=== PATIENT | female | born 1935 | race Caucasian/White ===

== ENCOUNTER 2022-02-11 09:21 | Inpatient (IN) | payer OTHER ==
[~2022-02-11] VITALS: Ht 147.3 cm; Wt 45.8 kg
[2022-02-11] MEDS ORDERED: VANCOMYCIN 1 GM in IV D5W 250 ML IV ONE (09:30)
[2022-02-11] MEDS ORDERED: PIPERACILLIN /TAZOBACTAM 3.375 G in IV D5W 50 ML IV ONE (09:30)
[2022-02-11] MEDS ORDERED: IV NS 0.9% 1,000 ML BAG IV ONE (09:30)
[2022-02-11] MEDS ORDERED: ACETAMINOPHEN 650 MG/SUPP.RECT RC ONE ×2 (10:04→11:00)
[2022-02-11 10:20] LABS: BASOPHILS % (AUTO) 0.1 % (0.0-2.0); HEMATOCRIT 43 % (33-45); HEMOGLOBIN 12.8 g/dL (11.5-14.8); LYMPHOCYTES # (AUTO) 0.9 K/uL (0.8-4.8); LYMPHOCYTES % (AUTO) 3.4 % (20.0-44.0); MEAN CORPUSCULAR HGB CONC 30 g/dl (31.0-36.0); MEAN CORPUSCULAR VOLUME 96 fL (82-100); MONOCYTES # (AUTO) 0.2 K/uL (0.1-1.30); MONOCYTES % (AUTO) 0.7 % (2.0-12.0); NEUTROPHILS # (AUTO) 24.3 K/uL (1.8-8.9); NEUTROPHILS % (AUTO) 95.8 % (43.0-81.0); PLATELET COUNT (AUTO) 312 K/uL (150-450); RED BLOOD CELL COUNT(AUTO) 4.45 MIL/uL (4.0-5.2); WHITE BLOOD COUNT (AUTO) 25.4 K/uL (4.3-11.0)
[2022-02-11] MEDS ORDERED: MORPHINE SULFATE INJ 2 MG/ML DISP.SYRIN IV ONE (10:30)
[2022-02-11 10:40] LABS: ALANINE AMINOTRANSFERASE 19 U/L (12-78); ALBUMIN 1.6 g/dL (3.4-5.0); ALKALINE PHOSPHATASE 289 U/L (46-116); ASPARTATE AMINOTRANSFERASE 22 U/L (15-37); BILIRUBIN,DIRECT 0.3 mg/dL (0.0-0.2); BILIRUBIN,TOTAL 0.7 mg/dL (0.2-1.0); CALCIUM, SERUM 7.4 mg/dL (8.5-10.1); CARBON DIOXIDE 11 mmol/L (21-32); CHLORIDE 103 mmol/L (98-107); GLUCOSE 274 mg/dL (74-106); POTASSIUM 4.8 mmol/L (3.5-5.1); SODIUM SERUM 139 mmol/L (136-145); TOTAL PROTEIN, SERUM 6.5 g/dL (6.4-8.2); UREA NITROGEN, BLOOD 79 mg/dL (7-18)
[2022-02-11] MEDS ORDERED: MORPHINE SULFATE INJ 2 MG/ML DISP.SYRIN ONE (10:52)
[2022-02-11 11:18] LABS: BILIRUBIN,URINE NEGATIVE (NEGATIVE); COLOR,URINE YELLOW (YELLOW); LEUKOCYTE ESTERASE ,URINE MODERATE (NEGATIVE); NITRITE, URINE POSITIVE (NEGATIVE); PH,URINE >8.5 (5.0-8.0); PROTEIN,URINE 100 mg/dl (NEGATIVE); UGLUCOSE 100 MG/DL mg/dL (NEGATIVE); UROBILINOGEN,URINE 0.2 EU/dL (0.2)
[2022-02-11] MEDS ORDERED: ACETAMINOPHEN 325 MG TABLET PO PRN (11:30)
[2022-02-11] MEDS ORDERED: ONDANSETRON HCL/PF 4 MG/2 ML VIAL IVP PRN (11:30)
[2022-02-11] MEDS ORDERED: IV NS 0.9% 1,000 ML IV PRN (11:30)
[2022-02-11] MEDS ORDERED: MAG HYDROX/AL HYDROX/SIMETH 30 ML UDC PO PRN (11:30)
[2022-02-11] MEDS ORDERED: MORPHINE SULFATE INJ 2 MG/ML DISP.SYRIN IV PRN (11:30)
[2022-02-11] MEDS ORDERED: MEMA5TAB42 PO (11:38)
[2022-02-11] MEDS ORDERED: ASCO500C17 PO (11:38)
[2022-02-11] MEDS ORDERED: GLIP10TA11 PO (11:38)
[2022-02-11] MEDS ORDERED: ZINC220C6 PO (11:38)
[2022-02-11] MEDS ORDERED: DONE10TA44 PO (11:38)
[2022-02-11] MEDS ORDERED: MIRT7.5T10 PO (11:38)
[2022-02-11] MEDS ORDERED: LOSA25TA27 PO (11:38)
[2022-02-11] MEDS ORDERED: FAMO20TA8 PO (11:38)
[2022-02-11] MEDS ORDERED: ALEN70TA80 PO (11:38)
[2022-02-11] MEDS ORDERED: PRED20TA PO (11:38)
[2022-02-11] MEDS ORDERED: ATOR20TA PO (11:38)
[2022-02-11] MEDS ORDERED: ASPI-1169 PO (11:38)
[2022-02-11 11:51] LABS: CALCIUM OXALATE CRYSTALS,UR Moderate /HPF (None Seen)
[2022-02-11 11:53] LABS: BACTERIA,URINE 2+ /HPF (None Seen); RBC,URINE 0-2 /HPF (0-2); WBC,URINE 0-2 /HPF (0-3)
[2022-02-11] MEDS ORDERED: PIPERACILLIN /TAZOBACTAM 2.25 G in IV D5W 50 ML IV SCH (13:00)
[2022-02-11] MEDS: HEPARIN SODIUM, PORCINE 5000 UNITS/1 ML VIAL SQ SCH ×2 (13:00→18:30)
[2022-02-11] MEDS ORDERED: HEPARIN SODIUM, PORCINE 5000 UNITS/1 ML VIAL ONE (13:01)
[2022-02-11] MEDS: IV D5/ 0.9% NACL 1,000 ML IV PRN ×2 (14:56→22:01)
[2022-02-11] MEDS ORDERED: Z GUARD REMEDY 4 OZ OINT TP PRN (17:00)
[2022-02-11 18:00] VITALS: BP 90/50
[2022-02-11 20:00] VITALS: BP 94/56
[2022-02-11 20:31] VITALS: BP 94/56
[2022-02-11] MEDS ORDERED: MEROPENEM 500 MG VIAL IV ONE (21:43)
[2022-02-11] MEDS ORDERED: MAGNESIUM HYDROXIDE 30 ML UDC PO PRN (22:00)
[2022-02-11] MEDS: MEROPENEM 500 MG in IV NS 0.9% 50 ML IV SCH (22:10)
[2022-02-11] MEDS ORDERED: METRONIDAZOLE 500MG/ NS 100ML 200 ML IV ONE (23:05)
[2022-02-11] MEDS: METRONIDAZOLE 500MG/ NS 100ML 500 MG in PREMIX 1 EA IV SCH (23:29)
[2022-02-12] VITALS: BP 95/49
[2022-02-12 04:00] VITALS: BP 95/53
[2022-02-12] MEDS: METRONIDAZOLE 500MG/ NS 100ML 500 MG in PREMIX 1 EA IV SCH ×3 (06:31→21:04)
[2022-02-12] MEDS: HEPARIN SODIUM, PORCINE 5000 UNITS/1 ML VIAL SQ SCH ×2 (08:30→16:39)
[2022-02-12] MEDS: MEROPENEM 500 MG in IV NS 0.9% 50 ML IV SCH (08:30)
[2022-02-12 08:38] VITALS: BP 146/110
[2022-02-12 08:46] LABS: BASOPHILS % (AUTO) 0.1 % (0.0-2.0); HEMATOCRIT 35 % (33-45); HEMOGLOBIN 10.9 g/dL (11.5-14.8); LYMPHOCYTES # (AUTO) 0.9 K/uL (0.8-4.8); LYMPHOCYTES % (AUTO) 2.4 % (20.0-44.0); MEAN CORPUSCULAR HGB CONC 31 g/dl (31.0-36.0); MEAN CORPUSCULAR VOLUME 93 fL (82-100); MONOCYTES % (AUTO) 2.7 % (2.0-12.0); NEUTROPHILS # (AUTO) 34.7 K/uL (1.8-8.9); NEUTROPHILS % (AUTO) 94.8 % (43.0-81.0); PLATELET COUNT (AUTO) 196 K/uL (150-450); RED BLOOD CELL COUNT(AUTO) 3.75 MIL/uL (4.0-5.2)
[2022-02-12 09:03] LABS: CALCIUM, SERUM 6.4 mg/dL (8.5-10.1); CARBON DIOXIDE 16 mmol/L (21-32); CHLORIDE 113 mmol/L (98-107); CREATININE 2.7 mg/dL (0.6-1.3); GLUCOSE 209 mg/dL (74-106); PHOSPHORUS 4.9 mg/dL (2.5-4.9); POTASSIUM 3.4 mmol/L (3.5-5.1); SODIUM SERUM 145 mmol/L (136-145); UREA NITROGEN, BLOOD 76 mg/dL (7-18)
[2022-02-12 09:06] LABS: WHITE BLOOD COUNT (AUTO) 36.6 K/uL (4.3-11.0)
[2022-02-12 09:08] LABS: MAGNESIUM 1.2 mg/dL (1.8-2.4)
[2022-02-12] MEDS: FAMOTIDINE (20 MG) 20 MG TABLET PO SCH (09:53)
[2022-02-12 10:37] LABS: BAND % (MANUAL) 5 % (0.0-5.0); LYMPHOCYTES % (MANUAL) 3 % (16-48); MONOCYTES % (MANUAL) 2 % (0-11.0); NEUTROPHILS % (MANUAL) 90 (42-76)
[2022-02-12 16:08] VITALS: BP 98/68
[2022-02-12 20:00] VITALS: BP 102/53
[2022-02-13] VITALS: BP 103/63
[2022-02-13] MEDS: IV D5/ 0.9% NACL 1,000 ML IV PRN (02:56)
[2022-02-13 04:00] VITALS: BP 120/70
[2022-02-13] MEDS: METRONIDAZOLE 500MG/ NS 100ML 500 MG in PREMIX 1 EA IV SCH ×3 (05:58→22:33)
[2022-02-13 08:00] VITALS: BP 129/69
[2022-02-13] MEDS ORDERED: IV D5/ 0.9% NACL 1,000 ML IV SCH (08:30)
[2022-02-13] MEDS: DONEPEZIL 5 MG TABLET PO SCH (08:39)
[2022-02-13] MEDS: FAMOTIDINE (20 MG) 20 MG TABLET PO SCH (08:39)
[2022-02-13] MEDS: ASPIRIN 81 MG TAB.CHEW PO SCH (08:39)
[2022-02-13] MEDS: HEPARIN SODIUM, PORCINE 5000 UNITS/1 ML VIAL SQ SCH ×2 (08:39→16:38)
[2022-02-13] MEDS: MEROPENEM 500 MG in IV NS 0.9% 50 ML IV SCH (08:41)
[2022-02-13] MEDS ORDERED: VANCOMYCIN 0.75 GM in IV D5W 250 ML IV SCH (10:00)
[2022-02-13] MEDS: DAKINS QUARTER STRENGTH (0.125%) 480 ML BOTTLE TOP SCH (11:08)
[2022-02-13 12:54] VITALS: BP 131/72
[2022-02-13 15:41] LABS: EOSINOPHILS % (AUTO) 0.1 % (0.0-6.0); HEMATOCRIT 36 % (33-45); HEMOGLOBIN 11.2 g/dL (11.5-14.8); LYMPHOCYTES # (AUTO) 0.8 K/uL (0.8-4.8); LYMPHOCYTES % (AUTO) 3.3 % (20.0-44.0); MEAN CORPUSCULAR HGB CONC 31 g/dl (31.0-36.0); MEAN CORPUSCULAR VOLUME 93 fL (82-100); MONOCYTES # (AUTO) 0.5 K/uL (0.1-1.30); MONOCYTES % (AUTO) 2.2 % (2.0-12.0); NEUTROPHILS # (AUTO) 22.1 K/uL (1.8-8.9); NEUTROPHILS % (AUTO) 94.4 % (43.0-81.0); PLATELET COUNT (AUTO) 187 K/uL (150-450); RED BLOOD CELL COUNT(AUTO) 3.92 MIL/uL (4.0-5.2); WHITE BLOOD COUNT (AUTO) 23.4 K/uL (4.3-11.0)
[2022-02-13 15:46] LABS: BAND % (MANUAL) 4 % (0.0-5.0)
[2022-02-13 15:47] LABS: LYMPHOCYTES % (MANUAL) 6 % (16-48); MONOCYTES % (MANUAL) 2 % (0-11.0); NEUTROPHILS % (MANUAL) 88 (42-76)
[2022-02-13] MEDS: GLUCERNA SHAKE 237 ML CAN PO SCH (17:12)
[2022-02-13] MEDS: CLOTRIMAZOLE 1% 15 GM TUBE TP SCH (17:13)
[2022-02-13 17:29] LABS: CALCIUM, SERUM 6.3 mg/dL (8.5-10.1); CARBON DIOXIDE 21 mmol/L (21-32); CHLORIDE 113 mmol/L (98-107); CREATININE 1.5 mg/dL (0.6-1.3); GLUCOSE 227 mg/dL (74-106); SODIUM SERUM 147 mmol/L (136-145); UREA NITROGEN, BLOOD 53 mg/dL (7-18)
[2022-02-13 17:39] LABS: POTASSIUM 2.4 mmol/L (3.5-5.1)
[2022-02-13] MEDS: POTASSIUM CL. PREMIX PERIPHER. 50 ML IV SCH ×4 (18:21→20:38)
[2022-02-13] MEDS ORDERED: Magnesium 1GM/D5W 100ML PREMIX PIGGYBACK IV ONE (18:30)
[2022-02-13] MEDS ORDERED: MGSO4/D5W 100 ML IV ONE (18:30)
[2022-02-13 18:59] VITALS: BP 124/70
[2022-02-13] MEDS ORDERED: IV 1/2NS 1000 ML 1,000 ML IV PRN (19:30)
[2022-02-13 20:00] VITALS: BP 126/68
[2022-02-14] VITALS: BP 154/65
[2022-02-14 04:00] VITALS: BP 158/71
[2022-02-14] MEDS: METRONIDAZOLE 500MG/ NS 100ML 500 MG in PREMIX 1 EA IV SCH (04:56)
[2022-02-14 06:40] LABS: EOSINOPHILS % (AUTO) 0.2 % (0.0-6.0); HEMATOCRIT 33 % (33-45); HEMOGLOBIN 10.5 g/dL (11.5-14.8); LYMPHOCYTES # (AUTO) 1.5 K/uL (0.8-4.8); LYMPHOCYTES % (AUTO) 7.8 % (20.0-44.0); MEAN CORPUSCULAR HGB CONC 32 g/dl (31.0-36.0); MEAN CORPUSCULAR VOLUME 92 fL (82-100); MONOCYTES # (AUTO) 0.7 K/uL (0.1-1.30); MONOCYTES % (AUTO) 3.8 % (2.0-12.0); NEUTROPHILS # (AUTO) 16.7 K/uL (1.8-8.9); NEUTROPHILS % (AUTO) 88.2 % (43.0-81.0); PLATELET COUNT (AUTO) 184 K/uL (150-450); RED BLOOD CELL COUNT(AUTO) 3.62 MIL/uL (4.0-5.2); WHITE BLOOD COUNT (AUTO) 18.9 K/uL (4.3-11.0)
[2022-02-14 06:59] LABS: CALCIUM, SERUM 6.3 mg/dL (8.5-10.1); CARBON DIOXIDE 20 mmol/L (21-32); CHLORIDE 117 mmol/L (98-107); CREATININE 1.1 mg/dL (0.6-1.3); GLUCOSE 145 mg/dL (74-106); MAGNESIUM 1.3 mg/dL (1.8-2.4); PHOSPHORUS 2.8 mg/dL (2.5-4.9); POTASSIUM 2.9 mmol/L (3.5-5.1); SODIUM SERUM 149 mmol/L (136-145); UREA NITROGEN, BLOOD 47 mg/dL (7-18)
[2022-02-14 08:00] VITALS: BP 131/74
[2022-02-14] MEDS ORDERED: Magnesium 1GM/D5W 100ML PREMIX 100 ML IV SCH ×2 (08:00→14:00)
[2022-02-14] MEDS: POTASSIUM CL. PREMIX PERIPHER. 50 ML IV SCH ×5 (08:41→14:37)
[2022-02-14] MEDS: FAMOTIDINE (20 MG) 20 MG TABLET PO SCH (08:41)
[2022-02-14] MEDS: DONEPEZIL 5 MG TABLET PO SCH (08:42)
[2022-02-14] MEDS: ASPIRIN 81 MG TAB.CHEW PO SCH (08:42)
[2022-02-14] MEDS: HEPARIN SODIUM, PORCINE 5000 UNITS/1 ML VIAL SQ SCH (08:43)
[2022-02-14] MEDS: GLUCERNA SHAKE 237 ML CAN PO SCH (08:44)
[2022-02-14] MEDS: CLOTRIMAZOLE 1% 15 GM TUBE TP SCH (08:45)
[2022-02-14] MEDS: DAKINS QUARTER STRENGTH (0.125%) 480 ML BOTTLE TOP SCH (08:45)
[2022-02-14] MEDS ORDERED: VANCOMYCIN 500 MG in IV D5W 100ml IV SCH (09:00)
[2022-02-14 16:02] VITALS: BP 151/73
[2022-02-14] MEDS ORDERED: MEROPENEM 500 MG in IV NS 0.9% 50 ML IV SCH (21:00)
== END 2022-02-14 16:20 | disposition short-term general hospital (02) | DRG 871 ==
LOC: ER 09:29 → TRANSITION 11:34 → TELE 13:17
PROVIDERS: ADMIT Internal Medicine; ATTEND Internal Medicine
PROC: 05H933Z Insertion of Infusion Device into Right Brachial Vein, Percutaneous Approach (ICD-10-PCS; principal; 2022-02-13)
DX: A41.50 Gram-negative sepsis, unspecified (principal); E43 Unspecified severe protein-calorie malnutrition; L89.154 Pressure ulcer of sacral region, stage 4; G92.8 Other toxic encephalopathy; N17.0 Acute kidney failure with tubular necrosis; R65.21 Severe sepsis with septic shock; N39.0 Urinary tract infection, site not specified; E87.2 Acidosis; R64 Cachexia; E87.0 Hyperosmolality and hypernatremia; J98.11 Atelectasis; Z20.822 Contact with and (suspected) exposure to COVID-19; Z79.83 Long term (current) use of bisphosphonates; Z79.82 Long term (current) use of aspirin; Z79.84 Long term (current) use of oral hypoglycemic drugs; Z79.899 Other long term (current) drug therapy; E87.6 Hypokalemia; R62.7 Adult failure to thrive; Z66 Do not resuscitate; Z51.5 Encounter for palliative care; E83.42 Hypomagnesemia; M20.40 Other hammer toe(s) (acquired), unspecified foot; M62.50 Muscle wasting and atrophy, not elsewhere classified, unspecified site; S81.811A Laceration without foreign body, right lower leg, initial encounter; X58.XXXA Exposure to other specified factors, initial encounter; Y92.9 Unspecified place or not applicable; E88.09 Other disorders of plasma-protein metabolism, not elsewhere classified; F03.90 Unspecified dementia, unspecified severity, without behavioral disturbance, psychotic disturbance, mood disturbance, and anxiety; L89.320 Pressure ulcer of left buttock, unstageable; R21 Rash and other nonspecific skin eruption
CPT/HCPCS: 36410; 36415; 71045-TC; 74018; 76770-TC; 80048-TC; 80076-TC; 80202-TC; 81001; 82962-TC; 83605-TC; 83735-TC; 84100-TC; 84132-TC; 84484-TC; 85025-TC; 85730-TC; 87040-TC; 87070-TC; 87081-TC; 87086-TC; 87186-TC; 94799-TC; A4216; A6253; A6403; C9803; G0378; J1644; J2185; J2270; J2543; J3370; J3475; J3480; J7030; J7042; J7050; J7060